=== PATIENT | male | born 1940 | race Caucasian/White ===

== ENCOUNTER 2019-07-12 13:30 | Outpatient (RCR) | payer MEDICARE, SELFPAY ==
[2019-06-14 12:28] VITALS: BP 136/58; PULSE 60; RESP 16; O2SAT 96
--- NOTE | 2019-06-22 11:34 | PCCPR ---
Pt called- will not be attending CR today due to having a sleep study last night and still tired.
[2019-07-03 14:47] LABS: Glucose Point of Care 224 (65-105)
--- NOTE | 2019-07-13 13:43 | PCCPR ---
pt called to cxl CR today; he is lightheaded and HR in 40's. Pt is waiting for MD office to call him back currently.
--- NOTE | 2019-07-14 10:16 | PCCPR ---
Pt called and states he has been in [place], MD wants him to wait to continue CR until he has further follow up. He plans to see his global product manager today and the EP doc NARESH, once he can get an apt scheduled. Pt will continue to update us on his status/any changes.
--- NOTE | 2019-07-20 11:30 | PCCPR ---
SPOKE WITH YONIS FOR AN UPDATE- SHAN He is wearing a 30 day monitor and is currently resting ans is to follow up with his Personnel Interviewer next week. We requested to keep us informed.
--- NOTE | 2019-07-25 11:47 | PCCPR ---
Pt stopped by to update staff on Raj's status. They cut metropolol in half and pt was doing much better for a few days, until last night he had an episode where HRs were in the 40s again. They have had him on a monitor for the last 2 weeks and plan to put him on a 12 lead monitor for 24 hours on (07/27). Pt will update us once they hear results Wednesday or Wednesday (07/30). Pt plans to return to CR as soon as he can.
--- NOTE | 2019-08-02 13:56 | PCCPR ---
Called Raj to check in and see when he plans to return. He states the doctor was supposed to call us to release him but we have not received a call or fax. Luciana sent fax to Dr. Choudhary on 07/28. I resent fax today requesting release from .
--- NOTE | 2019-08-08 13:12 | PCCPR ---
Release received to return, Raj notified, he plans to return 08/09/19.
--- NOTE | 2019-08-09 13:57 | PCCPR ---
Raj was suppose to return today but called and stated that he does not feel well, will return Wednesday.
--- NOTE | 2019-08-18 13:50 | PCCPR ---
Pt does not plan to attend next week due to COVID19, will wait to see as disease progresses to continue
--- NOTE | 2019-08-23 09:34 | PCCPR ---
Program is temporarily suspended due to COVID outbreak.
--- NOTE | 2019-08-30 14:01 | PCCPR ---
Called patient in regards to the temporary closure of our department continuing until at least September 27. Patient states he had a bad nights sleep so wasn't having the best day. States he is getting a little activity in at home. Will mail temporary home based exercise guidelines. Will continue to follow patient weekly.
--- NOTE | 2019-09-06 11:52 | PCCPR ---
Called Raj today for weekly check, he states that he received the exercise guidelines sent in the mail and is exercising at home but would not elaborate on what he is doing. Encouraged him that if he had any questions to not hesitate to call.
--- NOTE | 2019-09-12 15:24 | PCCPR ---
Spoke with Raj states he has been doing some exercise at home. He does have a recumbent bike and some home service technician free weights.To date he has not started the free weights but will try to this week.
--- NOTE | 2019-09-20 13:33 | PCCPR ---
Weekly update call-No questions or concerns at this time.
--- NOTE | 2019-09-27 13:09 | PCCPR ---
Weekly update call-informed patient of continued closure through the month of September due to the extension of the senior care in place order. No questions at this time.
--- NOTE | 2019-09-27 13:10 | PCCPR ---
Weekly update call-informed patient of continued closure through the month of September due to the extension of the custodial in place order. No questions at this time.
--- NOTE | 2019-10-26 14:56 | PCCPR ---
Bi-weekly phone call made, left message.
--- NOTE | 2019-11-07 13:41 | PCCPR ---
Spoke with Raj today states he is still interested in returning with the November. Explained to expect an envelope with our new safety policies with the covid pandemic.
--- NOTE | 2019-12-21 11:05 | PCCPR ---
Raj called today to inform us he will be absent today as his back is still no better. He stated that he had an appointment today with a chiropractor and will call us Wednesday if he is feeling no better.
--- NOTE | 2020-01-01 13:49 | PCCPR ---
Raj called states he was sick to his stomach he felt was related to what he ate last night.
--- NOTE | 2020-01-03 15:56 | PCCPR ---
Session 19 lost after [facility] unexpectedly shut down and session not recoverable.
--- NOTE | 2020-01-17 15:26 | PCCPR ---
Addendum entered by Mini Mata RN 01/18/20 13:50: Raj called states he still has an upset stomach not associated with a fever. He hopes to return on Wednesday. Raj is scheduled for dc 01/25/20. Original Note: Raj called out again today, having GI symptoms, no fever.
== END 2019-07-12 23:59 | disposition home or self-care (01) ==
LOC: ANHCPREHAB 13:30
DX: Z95.5 Presence of coronary angioplasty implant and graft (principal)
CPT/HCPCS: 93798

== ENCOUNTER 2019-11-11 15:02 | Outpatient (CLI) | payer MEDICARE, SELFPAY ==
--- NOTE | ~2019-11-11 | XR_ITS ---
EXAMINATION: XR shoulder LT min 2V DATE: 11/11/2019 15:31 INDICATION: Left shoulder pain. TECHNIQUE: 4 views of left shoulder were obtained. COMPARISON: None. FINDINGS: Bone alignment is normal. No fracture. There is severe osteoarthritis of glenohumeral joint and mild osteoarthritis of acromioclavicular joint. A left chest pacer is noted. IMPRESSION: 1. Polyarticular osteoarthritis. Reviewed, dictated and finalized at location A.
--- NOTE | ~2019-11-11 | XR_ITS ---
EXAMINATION: XR shoulder RT min 2V DATE: 11/11/2019 15:31 INDICATION: Right shoulder pain. TECHNIQUE: 4 views of right shoulder were obtained. COMPARISON: None. FINDINGS: There is superior subluxation of humeral head with respect to glenoid with narrowing of the subacromial space and remodeling of the undersurface of the acromion, consistent with chronic rotato r cuff tear with cuff arthropathy. No fracture. There is severe glenohumeral joint osteoarthritis and moderate acromioclavicular joint osteoarthritis. IMPRESSION: 1. Polyarticular osteoarthritis. 2. 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 Reviewed, dictated and finalized at location A.
== END 2019-11-11 15:03 | disposition home or self-care (01) ==
LOC: ANHIMG 15:08
PROVIDERS: PCP Internal Medicine Endocrinology, Diabetes & Metabolism
DX: M19.011 Primary osteoarthritis, right shoulder (principal); M19.012 Primary osteoarthritis, left shoulder
CPT/HCPCS: 73030

== ENCOUNTER 2020-01-29 13:30 | Outpatient (RCR) | payer MEDICARE, SELFPAY | END 2020-01-29 18:44 | disposition home or self-care (01) | LOC: ANHCPREHAB 13:30 | PROVIDERS: PCP Internal Medicine Endocrinology, Diabetes & Metabolism; Visit Provider Internal Medicine Cardiovascular Disease | DX: Z95.5 Presence of coronary angioplasty implant and graft (principal) | CPT/HCPCS: 93798 ==

== ENCOUNTER 2021-03-14 10:38 | Emergency (ER) | payer MEDICARE, SELFPAY ==
--- NOTE | 2021-03-14 10:59 | ED.SKABFB ---
HPI - Skin/Abscess/Foreign Bdy General Chief complaint: Extremity Injury, Lower Stated complaint: split my toe Time Seen by Provider: 03/14/21 10:51 Source: patient History of Present Illness HPI narrative: Patient presented for antibiotic change. Patient reports he had a recent fall and injured his toe and was noted to have a blister. He saw his clerical adjuster who put him on antibiotics for a foot ulcer. He reports when he takes the medication he gets headaches chest pain and shortness of breath and he would like to be switched to another antibiotic Related Data Home Medications Medication Instructions Recorded Confirmed acetaminophen [Tylenol 8 Hour] 650 mg PO Q8H PRN 06/14/19 06/14/19 apixaban [Eliquis] 5 mg PO BID 06/14/19 06/14/19 ascorbic acid (vitamin C) [Vitamin 500 mg PO DAILY 06/14/19 06/14/19 C] atorvastatin 40 mg PO HS 06/14/19 06/14/19 cholecalciferol (vitamin D3) 2,000 unit PO DAILY 06/14/19 06/14/19 [Vitamin D3] diphenhydramine HCl 25 mg PO Q6H PRN 06/14/19 06/14/19 eszopiclone [Lunesta] 1 mg PO HS 06/14/19 06/14/19 folic acid 1 mg PO DAILY 06/14/19 06/14/19 furosemide 80 mg PO QPM 06/14/19 06/14/19 furosemide 100 mg PO QAM 06/14/19 06/14/19 insulin lispro protamin-lispro 68 unit SUBCUT QAM 06/14/19 06/14/19 [Humalog Mix 75-25 KwikPen] insulin lispro protamin-lispro 55 unit SUBCUT QPM 06/14/19 06/14/19 [Humalog Mix 75-25(U-100)Insuln] isosorbide mononitrate 30 mg PO DAILY 06/14/19 06/14/19 losartan 50 mg PO DAILY 06/14/19 06/14/19 metoprolol tartrate 100 mg PO Q12H 06/14/19 06/14/19 inyfqblx-aew-DN-lycopen-lutein 1 tablet PO DAILY 06/14/19 06/14/19 [Centrum Silver] omeprazole 40 mg PO DAILY 06/14/19 06/14/19 polyethylene glycol 3350 [Miralax] 17 g PO DAILY PRN 06/14/19 06/14/19 potassium chloride [Klor-Con 10] 20 meq PO BID 06/14/19 06/14/19 simethicone [Gas-X] 1 strip PO DAILY PRN 06/14/19 06/14/19 spironolactone 12.5 mg PO DAILY 06/14/19 06/14/19 tizanidine 4 mg PO HS PRN 06/14/19 06/14/19 Allergies Allergy/AdvReac Type Severity Reaction Status Date / Time iodine Allergy Unknown Itching Verified 01/24/20 14:14 montelukast [From Singulair] Allergy Swelling Verified 01/24/20 14:14 of Lip/Tongue/Throat tramadol AdvReac Confusion Verified 01/24/20 14:14 HEART CATH DYE Allergy Severe Itching Uncoded 09/22/18 09:19 Contrast Media Allergy Unknown RASH Uncoded 09/23/18 08:02 Review of Systems Review of Systems: CONSTITUTIONAL: Denies fever, chills, or sweats. EYES: Denies visual changes, redness, or discharge. ENT: Denies rhinorrhea, congestion, sore throat, or otalgia. CARDIOVASCULAR: Denies chest pain, palpitations, or edema. RESPIRATORY: Denies cough or dyspnea. GASTROINTESTINAL: Denies abdominal pain, nausea, vomiting, or diarrhea. GENITOURINARY: Denies dysuria or hematuria. SKIN: Denies rash or itching. MUSCULOSKELETAL: Denies back pain, joint pain, or myalgia. NEUROLOGIC: Denies headache, numbness, dizziness, or weakness. PSYCHIATRIC: Denies anxiety or depression. All systems reviewed & are unremarkable except as noted in HPI and below PMFSH Family History Family History Other Diabetes mellitus Family history of cardiovascular disease Family history of chronic obstructive pulmonary disease Family history of kidney disease Family history of malignant neoplasm of thyroid Family history of scoliosis Hypertension Social History Social History Smoking packs per day: 0 Smoking cigarettes per day: 0.0 Smoking status: Former smoker Tobacco type: cigarettes Second hand tobacco smoke exposure: Yes Smoking end date: 05/31/94 Additional smoking assessment comments: smoked x 40 yrs up to 3 pkg/day Alcohol intake: never Exam Narrative: GENERAL: Well-appearing, well-nourished, and in no acute distress. HEAD: Normocephalic, atraumatic. EYES: PERRLA and EO
[2021-03-14 11:21] VITALS: BP 100/59; PULSE 85; RESP 18; TEMP 36.2; O2SAT 93
== END 2021-03-14 11:31 | disposition home or self-care (01) ==
PROVIDERS: Emergency Provider Emergency Medicine; PCP Internal Medicine Endocrinology, Diabetes & Metabolism
DX: E11.621 Type 2 diabetes mellitus with foot ulcer (principal); L97.529 Non-pressure chronic ulcer of other part of left foot with unspecified severity; Z79.01 Long term (current) use of anticoagulants; Z79.4 Long term (current) use of insulin; Z87.891 Personal history of nicotine dependence
CPT/HCPCS: 99283

== ENCOUNTER 2021-12-01 08:37 | Emergency (ER) | payer MEDICARE, SELFPAY ==
[2021-12-01 08:55] VITALS: BP 109/57; PULSE 80; RESP 18; TEMP 36.6; O2SAT 100
--- NOTE | 2021-12-01 09:20 | ED.EPISTAXIS ---
HPI - Epistaxis General Chief complaint: Epistaxis Stated complaint: Nose Bleeding Since 6am Time Seen by Provider: 12/01/21 09:09 History of Present Illness HPI Narrative: Patient is an 81-year-old male here for evaluation of a nosebleed since 6 AM. Denies trauma or triggers. Was able to stop bleeding temporarily but blew his nose afterwards and the bleeding restarted. States he feels it dripping down his throat. Takes Plavix for a stent in his leg and Eliquis for A. fib. Patient states that he had nasal surgery with Dr. Ingram 8 days ago for deviated septum. Has not had a nosebleed for many years. Denies lightheadedness, syncope, chest pain, shortness of breath. Related Data Home Medications Medication Instructions Recorded Confirmed acetaminophen 650 mg 650 mg PO Q8H PRN Pain 06/14/19 06/14/19 tablet,extended release (Tylenol 8 Hour) apixaban 5 mg tablet (Eliquis) 5 mg PO BID 06/14/19 06/14/19 ascorbic acid (vitamin C) 500 mg 500 mg PO DAILY 06/14/19 06/14/19 tablet (Vitamin C) atorvastatin 40 mg tablet 40 mg PO HS 06/14/19 06/14/19 cholecalciferol (vitamin D3) 50 2,000 unit PO DAILY 06/14/19 06/14/19 mcg (2,000 unit) tablet (Vitamin D3) diphenhydramine HCl 25 mg tablet 25 mg PO Q6H PRN Congestion 06/14/19 06/14/19 eszopiclone 1 mg tablet (Lunesta) 1 mg PO HS 06/14/19 06/14/19 folic acid 1 mg tablet 1 mg PO DAILY 06/14/19 06/14/19 furosemide 40 mg tablet 80 mg PO QPM 06/14/19 06/14/19 furosemide 40 mg tablet 100 mg PO QAM 06/14/19 06/14/19 insulin lispro protamine-lispro 68 unit subcut QAM 06/14/19 06/14/19 100 unit/mL (75-25) subcutaneous pen (Humalog Mix 75-25 KwikPen) insulin lispro protamine-lispro 55 unit subcut QPM 06/14/19 06/14/19 100 unit/mL (75-25) subcutaneous susp (Humalog Mix 75-25(U-100)Insuln) isosorbide mononitrate 30 mg 30 mg PO DAILY 06/14/19 06/14/19 tablet,extended release 24 hr losartan 50 mg tablet 50 mg PO DAILY 06/14/19 06/14/19 metoprolol tartrate 100 mg tablet 100 mg PO Q12H 06/14/19 06/14/19 ryoubuer-qua-wkvhg acid 0.4 1 tablet PO DAILY 06/14/19 06/14/19 mg-lycopene 300 mcg-lutein 250 mcg tablet (Centrum Silver) omeprazole 40 mg capsule,delayed 40 mg PO DAILY 06/14/19 06/14/19 release polyethylene glycol 3350 17 17 g PO DAILY PRN Constipation 06/14/19 06/14/19 gram/dose oral powder (Miralax) potassium chloride 10 mEq 20 meq PO BID 06/14/19 06/14/19 tablet,extended release (Klor-Con) simethicone 62.5 mg oral strips 1 strip PO DAILY PRN Abdominal Pain 06/14/19 06/14/19 (Gas-X) spironolactone 25 mg tablet 12.5 mg PO DAILY 06/14/19 06/14/19 tizanidine 4 mg capsule 4 mg PO HS PRN Muscle Spasm 06/14/19 06/14/19 Allergies Allergy/AdvReac Type Severity Reaction Status Date / Time iodine Allergy Unknown Itching Verified 01/24/20 14:14 montelukast [From Singulair] Allergy Swelling Verified 01/24/20 14:14 of Lip/Tongue/Throat tramadol AdvReac Confusion Verified 01/24/20 14:14 HEART CATH DYE Allergy Severe Itching Uncoded 09/22/18 09:19 Contrast Media Allergy Unknown RASH Uncoded 09/23/18 08:02 Review of Systems Review of Systems: Gen.: Denies fevers or chills Eyes: Denies eye pain or visual change ENT: Reports nosebleed. Respiratory: Denies shortness of breath or cough CV: Denies chest pain or palpitations GI: Denies abdominal pain nausea, emesis or diarrhea denies burning, urgency, frequency or hematuria Musculoskeletal: Denies back pain or muscle pain Neuro: Denies numbness, tingling, weakness or focal weakness Skin: Denies rash Except as documented, all other systems reviewed and negative [facility] Family History Family History Other Diabetes mellitus Family history of cardiovascular disease Family history of chronic obstructive pulmonary disease Family history of kidney disease Family history of malignant neoplasm of thyroid Family history of scoliosis Hypertension
[2021-12-01 10:05] LABS: Basophils Percent Auto 0.3 % (0.2-1.2); Eosinophils Absolute Auto 0.1 K/mm3 (0-0.3); Eosinophils Percent Auto 1.4 % (0-4.4); Hematocrit 35.1 % (42.0-52.0); Hemoglobin 11.5 g/dL (14.0-18.0); Immature Granulocyte Absolute 0.06 K/mm3 (0.00-0.031); Immature Granulocyte Percent A 0.6 % (0-0.5); Lymphocytes Absolute Auto 1.51 K/mm3 (0.9-3.2); Lymphocytes Percent Auto 15.3 % (18.3-44.2); Mean Corpuscular HGB Conc 32.8 g/dl (32-36); Mean Corpuscular Hemoglobin 33.3 pg (26-34); Mean Corpuscular Volume 101.7 fl (80-100); Mean Platelet Volume 8.6 fl (7.4-10.4); Monocytes Absolute Auto 0.8 K/mm3 (0.1-0.6); Monocytes Percent Auto 7.6 % (2.6-8.5); Neutrophils Absolute Auto 7.4 K/mm3 (1.3-6.7); Neutrophils Percent Auto 74.8 % (45.5-73.1); Platelet Count Result 216 k/mm3 (150-375); Red Blood Count 3.45 M/mm3 (4.6-6.20); Red Cell Distribution Width 13.6 % (11.5-14.5); White Blood Count 9.8 K/mm3 (4.5-10.0)
[2021-12-01] MEDS: OXYMETAZOLINE HCL 0.05% NAS 15 ML BTL (*BKC) 1 SPRAY NASAL (10:36)
[2021-12-01 10:38] LABS: INR > 20.0; Prothrombin Time > 120.0 Seconds (11.1-14.7)
[2021-12-01 10:39] LABS: Partial Thromboplastin Time > 200.0 SECONDS (22.3-36.8)
[2021-12-01] MEDS: ACETAMINOPHEN 325 MG TABLET 650 MG PO (11:18)
[2021-12-01] MEDS: CEPHALEXIN 500 MG CAPSULE PO (11:54)
[2021-12-01 12:02] LABS: INR 1.2
[2021-12-01 12:03] LABS: Partial Thromboplastin Time 30.1 SECONDS (22.3-36.8)
[2021-12-01 12:09] LABS: Prothrombin Time 15.2 Seconds (11.1-14.7)
[2021-12-01 12:37] VITALS: BP 132/78; PULSE 87; RESP 20; O2SAT 99
== END 2021-12-01 12:38 | disposition home or self-care (01) ==
PROVIDERS: Physician Assistant; Emergency Provider Emergency Medicine; PCP Internal Medicine Endocrinology, Diabetes & Metabolism
DX: R04.0 Epistaxis (principal); I48.91 Unspecified atrial fibrillation; Z79.01 Long term (current) use of anticoagulants; Z79.4 Long term (current) use of insulin; Z87.891 Personal history of nicotine dependence; Z79.02 Long term (current) use of antithrombotics/antiplatelets
CPT/HCPCS: 30901; 36415; 85025; 85610; 85730; 86850; 86900; 86901; 99283; A9270

== ENCOUNTER 2021-12-01 21:29 | Emergency (ER) | payer MEDICARE, SELFPAY ==
[2021-12-01 21:32] VITALS: BP 151/88; PULSE 95; RESP 16; TEMP 36.5; O2SAT 100
--- NOTE | 2021-12-01 23:08 | PC.NURSE ---
Assumed care of pt at this time. Pt alert and upright on stretcher. Rhino rocket in place with c/o drainage down back of throat.
[2021-12-01 23:09] VITALS: BP 132/66; PULSE 80; RESP 16; O2SAT 100
--- NOTE | 2021-12-01 23:24 | ED.EPISTAXIS ---
HPI - Epistaxis General Chief complaint: Epistaxis <SHOLMO Alvarez Last Filed: 12/02/21 01:52> Stated complaint: nose bleed <SHLOMO Alvarez Last Filed: 12/02/21 01:52> Time Seen by Provider: 12/01/21 21:41 <SHLOMO Alvarez Last Filed: 12/02/21 01:52> Source: patient <SHLOMO Alvarez Last Filed: 12/02/21 01:52> Mode of arrival: ambulatory <SHLOMO Alvarez Last Filed: 12/02/21 01:52> Limitations: no limitations <SHLOMO Alvarez Last Filed: 12/02/21 01:52> History of Present Illness HPI Narrative: This is a 81-year-old male that presents to the emergency department for nosebleed present today. He is evaluated in the emergency department earlier today and had a Rhino Rocket placed. He had nasal surgery with Dr. Ingram about a week ago. Reports tonight he was gargling with some salt water and the bleeding returned. He feels it going down the back of his throat. Denies fever. <SHLOMO Alvarez Last Filed: 12/02/21 01:52> Related Data Home medications: Home Medications Medication Instructions Recorded Confirmed acetaminophen 650 mg 650 mg PO Q8H PRN Pain 06/14/19 06/14/19 tablet,extended release (Tylenol 8 Hour) apixaban 5 mg tablet (Eliquis) 5 mg PO BID 06/14/19 06/14/19 ascorbic acid (vitamin C) 500 mg 500 mg PO DAILY 06/14/19 06/14/19 tablet (Vitamin C) atorvastatin 40 mg tablet 40 mg PO HS 06/14/19 06/14/19 cholecalciferol (vitamin D3) 50 2,000 unit PO DAILY 06/14/19 06/14/19 mcg (2,000 unit) tablet (Vitamin D3) diphenhydramine HCl 25 mg tablet 25 mg PO Q6H PRN Congestion 06/14/19 06/14/19 eszopiclone 1 mg tablet (Lunesta) 1 mg PO HS 06/14/19 06/14/19 folic acid 1 mg tablet 1 mg PO DAILY 06/14/19 06/14/19 furosemide 40 mg tablet 80 mg PO QPM 06/14/19 06/14/19 furosemide 40 mg tablet 100 mg PO QAM 06/14/19 06/14/19 insulin lispro protamine-lispro 68 unit subcut QAM 06/14/19 06/14/19 100 unit/mL (75-25) subcutaneous pen (Humalog Mix 75-25 KwikPen) insulin lispro protamine-lispro 55 unit subcut QPM 06/14/19 06/14/19 100 unit/mL (75-25) subcutaneous susp (Humalog Mix 75-25(U-100)Insuln) isosorbide mononitrate 30 mg 30 mg PO DAILY 06/14/19 06/14/19 tablet,extended release 24 hr losartan 50 mg tablet 50 mg PO DAILY 06/14/19 06/14/19 metoprolol tartrate 100 mg tablet 100 mg PO Q12H 06/14/19 06/14/19 yzzuhtwz-fvk-qmzvc acid 0.4 1 tablet PO DAILY 06/14/19 06/14/19 mg-lycopene 300 mcg-lutein 250 mcg tablet (Centrum Silver) omeprazole 40 mg capsule,delayed 40 mg PO DAILY 06/14/19 06/14/19 release polyethylene glycol 3350 17 17 g PO DAILY PRN Constipation 06/14/19 06/14/19 gram/dose oral powder (Miralax) potassium chloride 10 mEq 20 meq PO BID 06/14/19 06/14/19 tablet,extended release (Klor-Con) simethicone 62.5 mg oral strips 1 strip PO DAILY PRN Abdominal Pain 06/14/19 06/14/19 (Gas-X) spironolactone 25 mg tablet 12.5 mg PO DAILY 06/14/19 06/14/19 tizanidine 4 mg capsule 4 mg PO HS PRN Muscle Spasm 06/14/19 06/14/19 <Giselle Hoyos PA-C - Last Filed: 12/02/21 01:52> Allergies/adverse reactions: Allergies Allergy/AdvReac Type Severity Reaction Status Date / Time iodine Allergy Unknown Itching Verified 12/01/21 21:35 montelukast [From Singulair] Allergy Swelling Verified 12/01/21 21:35 of Lip/Tongue/Throat tramadol AdvReac Confusion Verified 12/01/21 21:35 HEART CATH DYE Allergy Severe Itching Uncoded 12/01/21 21:35 Contrast Media Allergy Unknown RASH Uncoded 12/01/21 21:35 <Giselle Hoyos PA-C - Last Filed: 12/02/21 01:52> Review of Systems Review of Systems: CONSTITUTIONAL: Denies fever ENT: Reports epistaxis <Giselle Hoyos PA-C - Last Filed: 12/02/21 01:52> All systems reviewed & are unremarkable except as noted in HPI and below <Giselle Hoyos PA-C - Last Filed: 12/02/21 01:52> [facility] Past Medical History Medical History: Medical
[2021-12-02 00:13] LABS: Basophils Percent Auto 0.2 % (0.2-1.2); Eosinophils Absolute Auto 0.1 K/mm3 (0-0.3); Eosinophils Percent Auto 0.6 % (0-4.4); Hematocrit 34.2 % (42.0-52.0); Hemoglobin 10.9 g/dL (14.0-18.0); Immature Granulocyte Absolute 0.07 K/mm3 (0.00-0.031); Immature Granulocyte Percent A 0.6 % (0-0.5); Lymphocytes Absolute Auto 1.37 K/mm3 (0.9-3.2); Lymphocytes Percent Auto 11.4 % (18.3-44.2); Mean Corpuscular HGB Conc 31.9 g/dl (32-36); Mean Corpuscular Hemoglobin 32.9 pg (26-34); Mean Corpuscular Volume 103.3 fl (80-100); Mean Platelet Volume 8.9 fl (7.4-10.4); Monocytes Absolute Auto 0.7 K/mm3 (0.1-0.6); Monocytes Percent Auto 5.8 % (2.6-8.5); Neutrophils Absolute Auto 9.8 K/mm3 (1.3-6.7); Neutrophils Percent Auto 81.4 % (45.5-73.1); Platelet Count Result 236 k/mm3 (150-375); Red Blood Count 3.31 M/mm3 (4.6-6.20); Red Cell Distribution Width 13.8 % (11.5-14.5)
--- NOTE | 2021-12-02 01:00 | PC.NURSE ---
Chencho salguero replaced at this time by SHAR Desai
[2021-12-02 01:59] VITALS: BP 112/61; PULSE 80; RESP 16; O2SAT 97
== END 2021-12-02 02:00 | disposition home or self-care (01) ==
PROVIDERS: Physician Assistant; Emergency Provider Emergency Medicine; PCP Internal Medicine Endocrinology, Diabetes & Metabolism
DX: I48.91 Unspecified atrial fibrillation (principal); E11.9 Type 2 diabetes mellitus without complications; Z87.891 Personal history of nicotine dependence; Z79.4 Long term (current) use of insulin; Z79.01 Long term (current) use of anticoagulants
CPT/HCPCS: 30901; 30903; 36415; 85025; 85610; 85730; 86850; 86900; 86901; 99282; A9270

== ENCOUNTER 2021-12-02 07:47 | Day surgery (SDC) | payer MEDICARE, SELFPAY ==
[2021-12-02] VITALS (10 sets, daily range): BP systolic 118–135; BP diastolic 60–78; PULSE 78–81; RESP 10–20; TEMP 36.4–37; O2SAT 93–100
[2021-12-02 08:15] LABS: Basophils Percent Auto 0.2 % (0.2-1.2); Eosinophils Absolute Auto 0.1 K/mm3 (0-0.3); Eosinophils Percent Auto 0.8 % (0-4.4); Immature Granulocyte Absolute 0.08 K/mm3 (0.00-0.031); Immature Granulocyte Percent A 0.8 % (0-0.5); Lymphocytes Absolute Auto 1.94 K/mm3 (0.9-3.2); Lymphocytes Percent Auto 18.2 % (18.3-44.2); Mean Corpuscular HGB Conc 33.3 g/dl (32-36); Mean Corpuscular Hemoglobin 33.8 pg (26-34); Mean Corpuscular Volume 101.5 fl (80-100); Mean Platelet Volume 8.7 fl (7.4-10.4); Monocytes Absolute Auto 0.9 K/mm3 (0.1-0.6); Monocytes Percent Auto 8.3 % (2.6-8.5); Neutrophils Absolute Auto 7.6 K/mm3 (1.3-6.7); Neutrophils Percent Auto 71.7 % (45.5-73.1); Platelet Count Result 234 k/mm3 (150-375); Red Blood Count 3.25 M/mm3 (4.6-6.20); Red Cell Distribution Width 13.8 % (11.5-14.5); White Blood Count 10.7 K/mm3 (4.5-10.0)
[2021-12-02 08:24] LABS: Anion Gap 9 mmol/L (8-16); Blood Urea Nitrogen 28 mg/dL (9-20); Calcium 8.3 mg/dL (8.4-10.2); Carbon Dioxide 29 mmol/L (22-30); Chloride 96 mmol/L (98-107); Estimated Glomerular Filt Rate 39; Glucose 212 mg/dL (65-110); Potassium 4.1 mmol/L (3.4-5.0); Sodium 134 mmol/L (137-145)
[2021-12-02 08:25] LABS: INR 1.2; Prothrombin Time 14.4 Seconds (11.1-14.7)
[2021-12-02 08:26] LABS: Partial Thromboplastin Time 29.7 SECONDS (22.3-36.8)
--- NOTE | 2021-12-02 08:50 | ED.EPISTAXIS ---
HPI - Epistaxis General Chief complaint: Epistaxis Stated complaint: nosebleed Time Seen by Provider: 12/02/21 07:50 History of Present Illness HPI Narrative: 81-year-old male presenting with nosebleed, he had had sinus surgery about a week ago, was on Plavix and Eliquis, and yesterday he came in because he was having persistent nosebleed from the left nare, this was packed with Rhino Rocket and he was advised to stop his blood thinners which she did, however last night he bled through the Rhino Rocket, came back and was repacked with another Rhino Rocket, and this morning as he was still having persistent bleeding and coughing up blood, he came in this morning. Denies any lightheadedness. Related Data Home Medications Medication Instructions Recorded Confirmed acetaminophen 650 mg 650 mg PO Q8H PRN Pain 06/14/19 06/14/19 tablet,extended release (Tylenol 8 Hour) apixaban 5 mg tablet (Eliquis) 5 mg PO BID 06/14/19 06/14/19 ascorbic acid (vitamin C) 500 mg 500 mg PO DAILY 06/14/19 06/14/19 tablet (Vitamin C) atorvastatin 40 mg tablet 40 mg PO HS 06/14/19 06/14/19 cholecalciferol (vitamin D3) 50 2,000 unit PO DAILY 06/14/19 06/14/19 mcg (2,000 unit) tablet (Vitamin D3) diphenhydramine HCl 25 mg tablet 25 mg PO Q6H PRN Congestion 06/14/19 06/14/19 eszopiclone 1 mg tablet (Lunesta) 1 mg PO HS 06/14/19 06/14/19 folic acid 1 mg tablet 1 mg PO DAILY 06/14/19 06/14/19 furosemide 40 mg tablet 80 mg PO QPM 06/14/19 06/14/19 furosemide 40 mg tablet 100 mg PO QAM 06/14/19 06/14/19 insulin lispro protamine-lispro 68 unit subcut QAM 06/14/19 06/14/19 100 unit/mL (75-25) subcutaneous pen (Humalog Mix 75-25 KwikPen) insulin lispro protamine-lispro 55 unit subcut QPM 06/14/19 06/14/19 100 unit/mL (75-25) subcutaneous susp (Humalog Mix 75-25(U-100)Insuln) isosorbide mononitrate 30 mg 30 mg PO DAILY 06/14/19 06/14/19 tablet,extended release 24 hr losartan 50 mg tablet 50 mg PO DAILY 06/14/19 06/14/19 metoprolol tartrate 100 mg tablet 100 mg PO Q12H 06/14/19 06/14/19 lftiffto-wyr-pxbab acid 0.4 1 tablet PO DAILY 06/14/19 06/14/19 mg-lycopene 300 mcg-lutein 250 mcg tablet (Centrum Silver) omeprazole 40 mg capsule,delayed 40 mg PO DAILY 06/14/19 06/14/19 release polyethylene glycol 3350 17 17 g PO DAILY PRN Constipation 06/14/19 06/14/19 gram/dose oral powder (Miralax) potassium chloride 10 mEq 20 meq PO BID 06/14/19 06/14/19 tablet,extended release (Klor-Con) simethicone 62.5 mg oral strips 1 strip PO DAILY PRN Abdominal Pain 06/14/19 06/14/19 (Gas-X) spironolactone 25 mg tablet 12.5 mg PO DAILY 06/14/19 06/14/19 tizanidine 4 mg capsule 4 mg PO HS PRN Muscle Spasm 06/14/19 06/14/19 Allergies Allergy/AdvReac Type Severity Reaction Status Date / Time iodine Allergy Unknown Itching Verified 12/01/21 21:35 montelukast [From Singulair] Allergy Swelling Verified 12/01/21 21:35 of Lip/Tongue/Throat tramadol AdvReac Confusion Verified 12/01/21 21:35 HEART CATH DYE Allergy Severe Itching Uncoded 12/01/21 21:35 Contrast Media Allergy Unknown RASH Uncoded 12/01/21 21:35 Review of Systems Review of Systems: CONST: Feeling tired. HEENT: Nosebleed C/V: No chest pain RESP: No difficulty breathing GI: No nausea or vomiting : No dysuria. M/S: No joint pain. SKIN: No rash. NEURO: No lightheadedness PSYCH: [No depression] [facility] Past Medical History Medical History (Updated 12/02/21 @ 08:58 by Angelique Jhaveri MD) History of atrial fibrillation History of diabetes mellitus Family History Family History Other Diabetes mellitus Family history of cardiovascular disease Family history of chronic obstructive pulmonary disease Family history of kidney disease Family history of malignant neoplasm of thyroid Family history of scoliosis Hypertension Social History Social History S
--- NOTE | 2021-12-02 08:59 | WPDCN ---
Assessment and Plan Assessment and plan (1) Epistaxis: Code(s): R04.0 - Epistaxis Status: Acute Assessment and Plan: To OR for control of epistaxis 10 days after septoplasty and FESS. Strict precautions afterwards to reduce bleeding risk. will hold anticoagulants for 7 days. Discussed with pt and who agree. HPI Data of Consult Date/Time: 12/02/21 08:59 Requesting Physician: Martin Ingram MD Primary Care Provider: Allen Sharma, Consult Narrative Narrative: Raj Rizo is a 81 year old male who is 10 days s/p left maxillary antrostomy and septoplasty for chronic sinusitis. He had done well after surgery, had routine debridement in office on POD 6 but on POD9 developed epistaxis. This was initially controlled with left rhinorocket, but 6 hours later he returned to ED with further bleeding. Rhinorocket replaced, but he returned again this morning with continued blood clot and epistaxis. He was noted to be supratherapeutic on anticoagulation with elliquis and plavix yesterday. Review of Systems Review of Systems: All systems reviewed & are unremarkable except as noted in HPI and below ENT: Comments: bleeding PMFSH Past Medical History Medical History History of atrial fibrillation History of diabetes mellitus Family History Family History Other Diabetes mellitus Family history of cardiovascular disease Family history of chronic obstructive pulmonary disease Family history of kidney disease Family history of malignant neoplasm of thyroid Family history of scoliosis Hypertension Social History Social History Smoking packs per day: 0 Smoking cigarettes per day: 0.0 Smoking status: Former smoker Tobacco type: cigarettes Second hand tobacco smoke exposure: Yes Smoking end date: 05/31/94 Additional smoking assessment comments: smoked x 40 yrs up to 3 pkg/day Alcohol intake: never Meds Home Medications and Allergies Home Medications Medication Instructions Recorded Confirmed Type acetaminophen 650 mg 650 mg PO Q8H PRN Pain 06/14/19 06/14/19 History tablet,extended release (Tylenol 8 Hour) apixaban 5 mg tablet (Eliquis) 5 mg PO BID 06/14/19 06/14/19 History ascorbic acid (vitamin C) 500 mg 500 mg PO DAILY 06/14/19 06/14/19 History tablet (Vitamin C) atorvastatin 40 mg tablet 40 mg PO HS 06/14/19 06/14/19 History cholecalciferol (vitamin D3) 50 2,000 unit PO DAILY 06/14/19 06/14/19 History mcg (2,000 unit) tablet (Vitamin D3) diphenhydramine HCl 25 mg tablet 25 mg PO Q6H PRN Congestion 06/14/19 06/14/19 History eszopiclone 1 mg tablet (Lunesta) 1 mg PO HS 06/14/19 06/14/19 History folic acid 1 mg tablet 1 mg PO DAILY 06/14/19 06/14/19 History furosemide 40 mg tablet 80 mg PO QPM 06/14/19 06/14/19 History furosemide 40 mg tablet 100 mg PO QAM 06/14/19 06/14/19 History insulin lispro protamine-lispro 68 unit subcut QAM 06/14/19 06/14/19 History 100 unit/mL (75-25) subcutaneous pen (Humalog Mix 75-25 KwikPen) insulin lispro protamine-lispro 55 unit subcut QPM 06/14/19 06/14/19 History 100 unit/mL (75-25) subcutaneous susp (Humalog Mix 75-25(U-100)Insuln) isosorbide mononitrate 30 mg 30 mg PO DAILY 06/14/19 06/14/19 History tablet,extended release 24 hr losartan 50 mg tablet 50 mg PO DAILY 06/14/19 06/14/19 History metoprolol tartrate 100 mg tablet 100 mg PO Q12H 06/14/19 06/14/19 History aleujtpn-ejk-qxhji acid 0.4 1 tablet PO DAILY 06/14/19 06/14/19 History mg-lycopene 300 mcg-lutein 250 mcg tablet (Centrum Silver) omeprazole 40 mg capsule,delayed 40 mg PO DAILY 06/14/19 06/14/19 History release polyethylene glycol 3350 17 17 g PO DAILY PRN Constipation 06/14/19 06/14/19 History gram/dose oral powder (Miralax) potassium chloride 10
--- NOTE | 2021-12-02 09:29 | WPDANESEPPF ---
Anes - Initial Pre Proc Eval Procedure: Operation Date: 12/02/21 09:30 Proposed Procedures p Control Of Epistaxis - Martin Ingram MD Date/Time: 12/02/21 09:29 Surgeon: Martin Ingram MD Pre Op Diagnosis: nosebleed Patient Data Age: 81 Gender: M Height: Weight: 98 kg Last Vital Signs Temp 97.8 F 12/02/21 07:52 Pulse 78 12/02/21 07:52 Resp 18 12/02/21 07:52 BP 133/63 12/02/21 07:52 Pulse Ox 100 12/02/21 07:52 O2 Del Method Room Air 12/02/21 07:52 Allergies Allergy/AdvReac Type Severity Reaction Status Date / Time iodine Allergy Unknown Itching Verified 12/01/21 21:35 montelukast [From Singulair] Allergy Swelling Verified 12/01/21 21:35 of Lip/Tongue/Throat tramadol AdvReac Confusion Verified 12/01/21 21:35 HEART CATH DYE Allergy Severe Itching Uncoded 12/01/21 21:35 Contrast Media Allergy Unknown RASH Uncoded 12/01/21 21:35 Home Medications Medication Instructions Recorded Confirmed Type acetaminophen 650 mg 650 mg PO Q8H PRN Pain 06/14/19 06/14/19 History tablet,extended release (Tylenol 8 Hour) apixaban 5 mg tablet (Eliquis) 5 mg PO BID 06/14/19 06/14/19 History ascorbic acid (vitamin C) 500 mg 500 mg PO DAILY 06/14/19 06/14/19 History tablet (Vitamin C) atorvastatin 40 mg tablet 40 mg PO HS 06/14/19 06/14/19 History cholecalciferol (vitamin D3) 50 2,000 unit PO DAILY 06/14/19 06/14/19 History mcg (2,000 unit) tablet (Vitamin D3) diphenhydramine HCl 25 mg tablet 25 mg PO Q6H PRN Congestion 06/14/19 06/14/19 History eszopiclone 1 mg tablet (Lunesta) 1 mg PO HS 06/14/19 06/14/19 History folic acid 1 mg tablet 1 mg PO DAILY 06/14/19 06/14/19 History furosemide 40 mg tablet 80 mg PO QPM 06/14/19 06/14/19 History furosemide 40 mg tablet 100 mg PO QAM 06/14/19 06/14/19 History insulin lispro protamine-lispro 68 unit subcut QAM 06/14/19 06/14/19 History 100 unit/mL (75-25) subcutaneous pen (Humalog Mix 75-25 KwikPen) insulin lispro protamine-lispro 55 unit subcut QPM 06/14/19 06/14/19 History 100 unit/mL (75-25) subcutaneous susp (Humalog Mix 75-25(U-100)Insuln) isosorbide mononitrate 30 mg 30 mg PO DAILY 06/14/19 06/14/19 History tablet,extended release 24 hr losartan 50 mg tablet 50 mg PO DAILY 06/14/19 06/14/19 History metoprolol tartrate 100 mg tablet 100 mg PO Q12H 06/14/19 06/14/19 History teeexsdy-wrh-zaqtb acid 0.4 1 tablet PO DAILY 06/14/19 06/14/19 History mg-lycopene 300 mcg-lutein 250 mcg tablet (Centrum Silver) omeprazole 40 mg capsule,delayed 40 mg PO DAILY 06/14/19 06/14/19 History release polyethylene glycol 3350 17 17 g PO DAILY PRN Constipation 06/14/19 06/14/19 History gram/dose oral powder (Miralax) potassium chloride 10 mEq 20 meq PO BID 06/14/19 06/14/19 History tablet,extended release (Klor-Con) simethicone 62.5 mg oral strips 1 strip PO DAILY PRN Abdominal Pain 06/14/19 06/14/19 History (Gas-X) spironolactone 25 mg tablet 12.5 mg PO DAILY 06/14/19 06/14/19 History tizanidine 4 mg capsule 4 mg PO HS PRN Muscle Spasm 06/14/19 06/14/19 History clindamycin HCl 150 mg capsule 450 mg PO TID 14 days #126 caps 03/14/21 Rx amoxicillin 875 mg-potassium 1 tablet PO Q12H #14 tabs 12/01/21 Rx clavulanate 125 mg tablet hydrocodone 5 mg-acetaminophen 325 1 tablet PO Q8H PRN pain #7 tabs 12/01/21 Rx mg tablet Laboratory Tests 12/02/21 12/02/21 12/02/21 08:02 08:02 08:10 WBC 10.7 K/mm3 H K/mm3 (4.5-10.0) RBC 3.25 M/mm3 L M/mm3 (4.6-6.20) Hgb 11.0 g/dL L g/dL (14.0-18.0) Hct 33.0 % L % (42.0-52.0) MCV 101.5 fl H fl (80-100) MCH 33.8 pg pg (26-34) MCHC 33.3 g/dl g/dl (32-36) RDW 13.8 % % (11.5-14.5) Plt Count 234 k/mm3 k/mm3 (150-375) MPV 8.7 fl fl (7.4-10.4) Immature Gran % (Auto) 0.8 % H % (0-0.5) Neut % (Auto) 71.7 % % (45.5-73.1) Lymph
[2021-12-02] MEDS: LACTATED RINGERS 1,000 ML 30 ML IV CONT (09:39)
--- NOTE | 2021-12-02 10:25 | W.PM.PROC2 ---
Procedure Note - Detailed Date of Procedure 12/02/21 Pre-op Diagnosis epistaxis Post-op Diagnosis Same Procedure Performed Control of epistaxis, posterior Surgeon Martin Ingram MD Indications Significant epistaxis not controlled in ER, 10 days after FESS/septoplasty Findings Left posterior septal source for bleeding. Cauterized extensively, placed nasopore. Description of Procedure On the date of surgery, Raj had presented previously to [facility] ER with epistaxis. Was supratherapeutic with plavix and elliquis. Failed conservative management with packing. Brought to OR for definitive control. Was placed under GETA. Timeout performed. Draped in standard fashion for nasal surgery. Under endoscopic visualization, extensive clots removed from nares bilaterally. Source of bleeding identified left posterior septum. Cauterized with suction bovie electrocautery at 25. Also cauterized where the maxillary antrostomy had been performed on left as there was trace oozing from edges. Afrin soaked cottonoids placed for 5 minutes. Re-examined, no further bleeding. Nasopore was replaced in the left middle meatus and along septum. Stomach decompressed with OGT. Care of patient returned to anesthesia who woke him up, extubated him and transferred him to PACU for recovery in stable condition without further difficulty or compliation. Estimated Blood Loss 50 Packing Yes (nasopore) Complications No immediate complications Disposition PACU
[2021-12-02] MEDS: OXYMETAZOLINE HCL 0.05% NAS 15 ML BTL (*BKC) 1 SPRAY NASAL (10:29)
[2021-12-02] MEDS: fentaNYL CITRATE INJ (*CRX) 100 MCG/2 ML VIAL 25 MCG IV PUSH ×2 (11:15→11:21)
[2021-12-02] MEDS: oxyCODONE HCL (*CRX) 5 MG TAB IR PO (11:58)
== END 2021-12-02 12:35 | disposition home or self-care (01) ==
LOC: ANHED 07:54 → ANHSURGERY 08:12
PROVIDERS: Emergency Provider Emergency Medicine; PCP Internal Medicine Endocrinology, Diabetes & Metabolism; Visit Provider Otolaryngology
PROC: (CPT 30905; principal; 2021-12-02 09:30)
DX: J95.830 Postprocedural hemorrhage of a respiratory system organ or structure following a respiratory system procedure (principal); R04.0 Epistaxis; E11.9 Type 2 diabetes mellitus without complications; I48.91 Unspecified atrial fibrillation; Z87.891 Personal history of nicotine dependence; Z79.4 Long term (current) use of insulin; Z79.01 Long term (current) use of anticoagulants
CPT/HCPCS: 30905; 36415; 80048; 85025; 85610; 85730; A9270; J0330; J1100; J2405; J2704; J3010; J7120

== ENCOUNTER 2022-08-09 11:44 | Emergency (ER) | payer MEDICARE, SELFPAY ==
[2022-08-09] VITALS (10 sets, daily range): BP systolic 100–117; BP diastolic 44–79; PULSE 81–95; RESP 16–23; TEMP 36.3; O2SAT 95–100
--- NOTE | ~2022-08-09 | XR_ITS ---
Portable chest x-ray Comparison: 12/27/2015 Clinical History: PICC line placement Findings: Right-sided PICC line is in satisfactory position. Minimal left pleural effusion present. Right lung clear. Cardiomediastinal silhouette is stable, with pacemaker device. Bones and soft tiss ues are unremarkable. Impression: Right-sided PICC line in satisfactory position. Minimal left pleural effusion. Reviewed, dictated and finalized at location . Impression: Right-sided PICC line in satisfactory position. Minimal left pleural effusion.
--- NOTE | 2022-08-09 13:47 | ED.GENADULT ---
HPI - General Adult General Chief complaint: Unspecified Stated complaint: constipated 3 days Time Seen by Provider: 08/09/22 13:04 Source: patient Mode of arrival: ambulatory Limitations: no limitations History of Present Illness HPI narrative: 82-year-old male with significant medical history of recent NM was just discharged at [facility]. The is at the bedside and is currently very overwhelmed with the patient's plan of care. He is currently on a dobutamine drip at home. Dobutamine bag is 740mg in 185 dose 0.467mg/min which is 7ml per hour. Was told that he had 6 months to live. They are awaiting palliative care management and have an appointment on Wednesday with the card tape converter operator. At this point in time the cannot be more descriptive on the patient's medical history. Patient arrives today with complaints of constipation x3 days. Patient has tried MiraLAX, Fleet enema, digital disimpaction, and Colace at home without relief. Patient does have a history of hemorrhoids that do bleed when he gets constipated like this. Patient denies any abdominal pain. Patient states prior to being pulled back into the room today that he had a bowel movement and currently feels much better. Patient denies any feelings of constipation. He feels like he evacuated his bowels completely. Patient without any other complaints today. He does have intermittent bouts of dizziness and lightheadedness but he states this is a chronic issue and due to his medications. Related Data Home Medications Medication Instructions Recorded Confirmed acetaminophen 650 mg 650 mg PO Q8H PRN Pain 06/14/19 06/14/19 tablet,extended release (Tylenol 8 Hour) apixaban 5 mg tablet (Eliquis) 5 mg PO BID 06/14/19 06/14/19 ascorbic acid (vitamin C) 500 mg 500 mg PO DAILY 06/14/19 06/14/19 tablet (Vitamin C) atorvastatin 40 mg tablet 40 mg PO HS 06/14/19 06/14/19 cholecalciferol (vitamin D3) 50 2,000 unit PO DAILY 06/14/19 06/14/19 mcg (2,000 unit) tablet (Vitamin D3) diphenhydramine HCl 25 mg tablet 25 mg PO Q6H PRN Congestion 06/14/19 06/14/19 eszopiclone 1 mg tablet (Lunesta) 1 mg PO HS 06/14/19 06/14/19 folic acid 1 mg tablet 1 mg PO DAILY 06/14/19 06/14/19 furosemide 40 mg tablet 80 mg PO QPM 06/14/19 06/14/19 furosemide 40 mg tablet 100 mg PO QAM 06/14/19 06/14/19 insulin lispro protamine-lispro 68 unit subcut QAM 06/14/19 06/14/19 100 unit/mL (75-25) subcutaneous pen (Humalog Mix 75-25 KwikPen) insulin lispro protamine-lispro 55 unit subcut QPM 06/14/19 06/14/19 100 unit/mL (75-25) subcutaneous susp (Humalog Mix 75-25(U-100)Insuln) isosorbide mononitrate 30 mg 30 mg PO DAILY 06/14/19 06/14/19 tablet,extended release 24 hr losartan 50 mg tablet 50 mg PO DAILY 06/14/19 06/14/19 metoprolol tartrate 100 mg tablet 100 mg PO Q12H 06/14/19 06/14/19 nrrblgye-yht-wgkqu acid 0.4 1 tablet PO DAILY 06/14/19 06/14/19 mg-lycopene 300 mcg-lutein 250 mcg tablet (Centrum Silver) omeprazole 40 mg capsule,delayed 40 mg PO DAILY 06/14/19 06/14/19 release polyethylene glycol 3350 17 17 g PO DAILY PRN Constipation 06/14/19 06/14/19 gram/dose oral powder (Miralax) potassium chloride 10 mEq 20 meq PO BID 06/14/19 06/14/19 tablet,extended release (Klor-Con) simethicone 62.5 mg oral strips 1 strip PO DAILY PRN Abdominal Pain 06/14/19 06/14/19 (Gas-X) spironolactone 25 mg tablet 12.5 mg PO DAILY 06/14/19 06/14/19 tizanidine 4 mg capsule 4 mg PO HS PRN Muscle Spasm 06/14/19 06/14/19 Allergies Allergy/AdvReac Type Severity Reaction Status Date / Time iodine Allergy Unknown Itching Verified 08/09/22 13:14 montelukast [From Singulair] Allergy Swelling Verified 08/09/22 13:14 of Lip/Tongue/Throat sacubitril [From Entresto] Allergy Stopped Verified 08/09/22 13:14 Breathing valsartan [From Entresto] Allergy Stopped Verified 08/09/22 13:14 Breathing tramadol AdvReac Confusion Verified 08/09/22 13:14 HEART CATH DYE Wilfredo
[2022-08-09 14:07] LABS: Basophils Percent Auto 0.2 % (0.2-1.2); Eosinophils Percent Auto 0.3 % (0-4.4); Hematocrit 33.8 % (42.0-52.0); Hemoglobin 10.7 g/dL (14.0-18.0); Immature Granulocyte Absolute 0.02 K/mm3 (0.00-0.031); Immature Granulocyte Percent A 0.3 % (0-0.5); Lymphocytes Absolute Auto 0.68 K/mm3 (0.9-3.2); Lymphocytes Percent Auto 10.7 % (18.3-44.2); Mean Corpuscular HGB Conc 31.7 g/dl (32-36); Mean Corpuscular Hemoglobin 30.7 pg (26-34); Mean Corpuscular Volume 96.8 fl (80-100); Mean Platelet Volume 9.2 fl (7.4-10.4); Monocytes Absolute Auto 0.6 K/mm3 (0.1-0.6); Monocytes Percent Auto 10.1 % (2.6-8.5); Neutrophils Percent Auto 78.4 % (45.5-73.1); Platelet Count Result 191 k/mm3 (150-375); Red Blood Count 3.49 M/mm3 (4.6-6.20); Red Cell Distribution Width 17.7 % (11.5-14.5); White Blood Count 6.4 K/mm3 (4.5-10.0)
[2022-08-09 14:22] LABS: Alanine Aminotransferase 41 U/L (6-50); Albumin Level 3.8 g/dL (3.5-5.1); Alkaline Phosphatase 109 U/L (38-126); Anion Gap 10 mmol/L (8-16); Aspartate Amino Transferase 31 U/L (17-59); Bilirubin,Total 1.2 mg/dL (0.2-1.3); Blood Urea Nitrogen 34 mg/dL (9-20); Calcium 8.9 mg/dL (8.4-10.2); Carbon Dioxide 33 mmol/L (22-30); Chloride 84 mmol/L (98-107); Estimated CRCL calculation 36 ml/min; Estimated Glomerular Filt Rate 45; Glucose 142 mg/dL (65-110); Potassium 2.7 mmol/L (3.4-5.0); Sodium 127 mmol/L (137-145)
--- NOTE | 2022-08-09 14:38 | PC.NURSE ---
added on a MG at 1436.
[2022-08-09 15:08] LABS: Magnesium 1.8 mg/dL (1.6-2.3)
[2022-08-09] MEDS: POTASSIUM CHLORIDE 10 MEQ TABLET 20 MEQ PO (15:30)
[2022-08-09] MEDS: POTASSIUM CHLORIDE INJ 40 MEQ in SODIUM CHLORIDE 0.9% IV 500 ML 130 MEQ IVPB (16:11)
--- NOTE | 2022-08-09 17:18 | ECG_ITS ---
Measurements Intervals [place] Rate: 96 P: WI: 0 QRS: 171 QRSD: 163 T: -54 QT: 436 QTc: 552 Interpretive Statements ELECTRONIC VENTRICULAR PACEMAKER FUSION COMPLEXES BASELINE ARTIFACT- I, II AVR, AVL, AVF, V1-V6 NO FURTHER INTERPRETATION IS POSSIBLE ATYPICAL ECG NO PREVIOUS ECG AVAILABLE FOR COMPARISON Electronically Signed On 08-09-2022 20:36:21 CDT by Ted Valencia D.O.
--- NOTE | 2022-08-09 17:30 | PC.NURSE ---
Pt had a brief near syncopal episode, pt said I have this episodes when I will fall asleep and all the sudden I will start shaking and I will wake up . Pt denies any pain.
[2022-08-09] MEDS: HYDROcodone/acetaminophen (*CRX) 5-325 MG TABLET 1 TAB PO (19:01)
== END 2022-08-09 19:47 | disposition short-term general hospital (02) ==
PROVIDERS: Nurse Practitioner Family; Emergency Provider Emergency Medicine; PCP Internal Medicine Endocrinology, Diabetes & Metabolism
DX: E87.6 Hypokalemia (principal); K59.00 Constipation, unspecified; R55 Syncope and collapse; I48.91 Unspecified atrial fibrillation; E11.9 Type 2 diabetes mellitus without complications; I25.2 Old myocardial infarction; Z87.891 Personal history of nicotine dependence
CPT/HCPCS: 36415; 71045; 80053; 83735; 85025; 93005; 96365; 96367; 99285; A9270; J3480; J7040